=== PATIENT | male | born 1975 | race Caucasian/White ===

== ENCOUNTER 2017-04-08 19:47 | Emergency (ER) | payer SELFPAY ==
[2017-04-08 19:53] VITALS: BMI 26.6
[2017-04-08] MEDS ORDERED: SOLU-Medrol 125 MG VIAL IM ONE (21:59)
--- NOTE | 2017-04-08 22:04 | DR.GENAD ---
HPI - PCP Primary Care Physician: NFD - Complaint/Symptoms Chief Complaint Doctors Comments: 'Numb' from waist down since his legs 'let go ' while walking with a heavy log about 1 month ago. No probs with bowel control , diminished control of urination with urgency. Legs shake and he has difficulty walking, worse in the evenings. Hasn't been seen previously for this. Affects both lower ext Chief Complaint:: PT STATES" A MONTH AGO I PICKED UP A BIG LOG AND NOW MY LEGS AND ARMS GO NUMB I HAVE PAIN FROM MY NECK DOWN MY WHOLE BACK" - Source History Provided: Patient - Mode of Arrival Mode of Arrival: Ambulatory - Timing Onset of Chief Complaint: 03/08/17 PMH - PMH Past Medical History: Yes (no prior back injury) Past Medical History: Hypertension Past Medical History Comment: No significant or contributory PMH Past Surgical History: No - Family History History of Family Medical Conditions: Yes Family Medical History: Diabetes Mellitus, Coronary Artery Disease, Hypertension - Social History Does any household member use tobacco: Yes Alcohol Use: Occasionally Do you use any recreational Drugs:: No Lives With: Family Lives Where: Home - infectious screening In the last 2 months have you had wt loss of >10#?: NO Have you had fever, night sweats or hemotysis?: No Have you traveled outside the country in the last 6 months?: No Isolation: Standard ROS - Review of Systems Eyes: No Symptoms Reported ENTM: No Symptoms Reported Respiratoy: No Symptoms Reported Cardiovascular: No Symptoms Reported Gastrointestinal/Abdominal: No Symptoms Reported Genitourinary: See HPI, Frequency Neurological: Paresthesia, Tingling, Tremors, Weakness, Problems Walking Musculoskeletal: Back Pain Integumentary: No Symptoms Reported Hematologic/Lymphatic: No Symptoms Reported Endocrine: No Symptoms Reported Psychiatric: No Symptoms Reported All Other Systems: Reviewed and Negative PE - Vital Signs Vitals: Temperature 98.6 F Pulse Rate 111 Respiratory Rate 18 Blood Pressure [Right Arm] 121/75 Blood Pressure 138/101 O2 Sat by Pulse Oximetry 100 - General Limitations: No Limitations General Appearance: Alert, In No Apparent Distress - Head Head Exam: Normal Inspection, Normocephalic - Eyes Eye exam: Normal Appearance - ENT ENT Exam: Normal Exam - Neck Neck Exam: Normal Inspection, Full ROM, Trachea Midline. negative: Tenderness, Meningismus - Chest Chest Inspection: Normal Inspection, Symmetric Chest Wall Rise. negative: Tenderness - Respiratory Respiratory Exam: Normal Lung Sounds Bilat. negative: Accessory Muscle Use, Chest Wall Tenderness Respiratory Exam: Bilateral Clear to Auscultation - Cardiovascular Cardiovascular Exam: Regular Rate, Normal Rhythm, Normal Heart Sounds - Abdominal Exam Abdominal Exam: Normal Inspection, Normal Bowel Sounds, Soft. negative: Pulsatile Mass - Extremities Extremities Exam: Normal Inspection, Normal Capillary Refill, Other (Full strength both LE, reflexes at knees symmetric, seem a little hyperreflexic. No muscle wasting. Tremors both legs come and go. Vascularly intact bilaterally.) - Back Back Exam: Normal Inspection, Tenderness. negative: Muscle Spasm, Paraspinal Tenderness - Neurologic Neurological Exam: Alert, Oriented X3 - Psychiatric Psychiatric Exam: Normal Affect, Normal Mood - Skin Skin Exam: Warm, Dry, Intact MDM - Additional Information Additional Information Obtained From: Family Course - Education/Counseling Education/Counseling: Patient (Explained to patient that he needs workup beyond what can be done in ER. Will in all likelihood need MRI and myelogram. Pt declines CT tonight, asks for specialist phone number so he can see one. Gave pt # to [facility]. Pt declines CT as he believes he'll just have to have another one thru them.) - Diagnosis Discharge Problem: Back disorder - Discharge Plan Disposition: 01 HOME, SELF-CARE Condition: Stable Prescriptions: Prednisone [Prednisone Tab 20 mg] 20 mg PO BID 7 Days #14 tab - Follow ups/Referrals Follow ups/Referrals: NFD,None [Primary Care Provider] - 3 days - Instructions
[2017-04-08] MEDS ORDERED: SOLU-Medrol 125 MG VIAL ONE (22:10)
[2017-04-08 23:25] VITALS: BP 142/92
== END 2017-04-08 23:15 | disposition home or self-care (01) ==
LOC: ER 19:59
DX: M54.89 Other dorsalgia (principal)
CPT/HCPCS: 96372; 99282; J2930